=== PATIENT | male | born 1980 | race Caucasian/White ===

== ENCOUNTER 2016-05-11 17:09 | Emergency (ER) | payer MEDICARE ==
--- NOTE | 2016-05-11 17:40 | ER Document Report ---
ED General - General Mode of Arrival: Ambulatory Information source: Patient, Law Enforcement TRAVEL OUTSIDE OF THE [place] IN LAST 30 DAYS: No - HPI Onset: This morning Quality of pain: No pain Severity: None Associated symptoms: None Exacerbated by: Denies Relieved by: Denies Similar symptoms previously: Yes - Recently seen / treated by doctor: No <MAYKEL HERNANDEZ - Last Filed: 05/11/16 19:22> <JAMI HERNANDEZ - Last Filed: 05/12/16 00:42> <DON MOCK - Last Filed: 05/12/16 16:36> - General Chief Complaint: Psych Problem Stated Complaint: PSYCH LEE ANN Notes: Patient presents to the emergency department on IVC orders for concerns of being dangerous to himself and others. The report notes that he is talking himself making hand gestures to his mother. Also reports he's made several threats to harm himself and others. Concerned that he is not taking his schizophrenic medications. Patient is extremely hard to understand he is mumbling under his breath. Patient is calm at this time. (MAYKEL HERNANDEZ) - Related Data Allergies/Adverse Reactions: quetiapine fumarate [From Seroquel] Allergy (Verified 09/07/15 16:48) ziprasidone HCl [From Geodon] Allergy (Verified 09/07/15 16:48) ziprasidone mesylate [From Geodon] Allergy (Verified 09/07/15 16:48) Past Medical History - General Information source: Patient - Social History Smoking Status: Unknown if Ever Smoked Cigarette use (# per day): No Chew tobacco use (# tins/day): Yes Frequency of alcohol use: None Drug Abuse: None Lives with: Other - pt denies living with anyone, [facility] patient [facility] a resident of the [facility]. Family History: Reviewed & Not Pertinent - Past Medical History Cardiac Medical History: Denies: Hx Heart Attack, Hx Hypertension Pulmonary Medical History: Denies: Hx Asthma Neurological Medical History: Denies: Hx Cerebrovascular Accident, Hx Seizures GI Medical History: Denies: Hx Hepatitis, Hx Hiatal Hernia, Hx Ulcer Psychiatric Medical History: Reports: Hx Bipolar Disorder, Hx Schizophrenia Infectious Medical History: Denies: Hx Hepatitis Past Surgical History: Denies: Hx Open Heart Surgery, Hx Pacemaker <MAYKEL HERNANDEZ - Last Filed: 05/11/16 19:22> Review of Systems <MAYKEL HERNANDEZ - Last Filed: 05/11/16 19:22> <JAMI HERNANDEZ - Last Filed: 05/12/16 00:42> <DON MOCK - Last Filed: 05/12/16 16:36> - Review of Systems Notes: Review HPI for review of systems., All other systems negative (MAYKEL HERNANDEZ) Physical Exam <MAYKEL HERNANDEZ - Last Filed: 05/11/16 19:22> <JAMI HERNANDEZ - Last Filed: 05/12/16 00:42> <DON MOCK - Last Filed: 05/12/16 16:36> - Vital signs Vitals: Temp Pulse Resp BP Pulse Ox 98.4 F 75 20 128/76 H 100 05/11/16 17:17 05/11/16 17:17 05/11/16 17:17 05/11/16 17:17 05/11/16 17:17 (MAYKEL HERNANDEZ) (JAMI HERNANDEZ) (DON MOCK) - Notes Notes: PHYSICAL EXAMINATION: GENERAL: Well-appearing and in no acute distress calm HEAD: Atraumatic, normocephalic. EYES: Pupils equal round extraocular movements intact, sclera anicteric, conjunctiva are normal. ENT: nares patent, . Moist mucous membranes. NECK: Normal range of motion, supple without lymphadenopathy LUNGS: CTAB and equal. No wheezes rales or rhonchi. HEART: Regular rate and rhythm without murmurs ABDOMEN: Soft, no tenderness. No guarding, no rebound EXTREMITIES: Normal range of motion, no pitting edema. No cyanosis. NEUROLOGICAL: Cranial nerves grossly intact. PSYCH: Normal mood, normal affect. SKIN: Warm, Dry, normal turgor, no rashes or lesions noted (MAYKEL HERNANDEZ) Course - Laboratory Result Diagrams: 05/11/16 17:35 05/11/16 17:35 <MAYKEL HERNANDEZ - Last Filed: 05/11/16 19:22> - Laboratory Result Diagrams: 05/11/16 17:35 05/11/16 17:35 <JAMI HERNANDEZ - Last Filed: 05/12/16 00:42> - Laboratory Result Diagrams: 05/11/16 17:35 05/11/16 17:35 <DON MOCK - Last Filed: 05/12/16 16:36> - Re-evaluation Re-evalutation: 05/11/16 17:39 Fredy from mental health is aware patient. She has reviewed his chart. She attempted to contact the person on the IVC orders for further information. Unable to contact them. She will further evaluate him in the morning. 05/11/16 19:22 Pt resting quietly, calm, report given to Jami HUA (MAYKEL HERNANDEZ) 05/12/16 00:40 Patient sleeping peacefully on evaluation. (JAMI HERNANDEZ) - Vital Signs Vital signs: Temp Pulse Resp BP Pulse Ox 98.4 F 68 18 138/70 H 99 05/11/16 17:17 05/12/16 07:27 05/12/16 07:27 05/12/16 07:27 05/12/16 07:27 (MAYKEL HERNANDEZ) (JAMI HERNANDEZ) (DON MOCK) - Laboratory Laboratory results interpreted by me: 05/11/16 05/11/16 05/11/16 17:35 17:35 18:00 Hgb 12.2 L MCH 26.2 L RDW 14.2 H Carbon Dioxide 31 H Urine Ketones 25 H Urine Blood SMALL H Salicylates < 1.0 L Acetaminophen < 10 L (JAMI HERNANDEZ) (DON MOCK) Discharge <MAYKEL HERNANDEZ - Last Filed: 05/11/16 19:22> <JAMI HERNANDEZ - Last Filed: 05/12/16 00:42> <DON MOCK - Last Filed: 05/12/16 16:36> - Discharge Clinical Impression: Noncompliance with medication regimen Schizophrenia Qualifiers: Schizophrenia type: unspecified Qualified Code(s): F20.9 - Schizophrenia, unspecified Condition: Stable Disposition: HOME, SELF-CARE Additional Instructions: You were given a long acting form of Haldol today which should last about 4 weeks. You may return to the care home where he lives today. Follow-up with your psychiatric mental health providers in the next 2 weeks. RETURN TO THE EMERGENCY ROOM IF ANY NEW OR WORSENING SYMPTOMS. Scribe Attestation: 05/12/16 16:35 (DON MOCK)
[2016-05-11] MEDS ORDERED: HALOPERIDOL LACTATE INJ 5 MG/1 ML VIAL IM PRN (17:56)
[2016-05-11 18:00] LABS: ABSOLUTE BASOPHILS # (AUTO) 0.1 10^3/uL (0.0-0.2); ABSOLUTE EOSINOPHILS # (AUTO) 0.1 10^3/uL (0.0-0.6); ABSOLUTE LYMPHOCYTES (AUTO) 1.8 10^3/uL (0.5-4.7); ABSOLUTE MONOCYTES (AUTO) 0.8 10^3/uL (0.1-1.4); ABSOLUTE NEUT (AUTO) 3.7 10^3/uL (1.7-8.2); BASOPHILS % (AUTO) 0.8 % (0-2); EOSINOPHILS % (AUTO) 1.9 % (0-6); HEMATOCRIT 37.9 % (37.9-51.0); HEMOGLOBIN 12.2 g/dL (13.5-17.0); HGB HCT DIFFERENCE -1.3; LYMPHOCYTES % (AUTO) 27.3 % (13-45); MEAN CORPUSCULAR HEMOGLOBIN 26.2 pg (27.0-33.4); MEAN CORPUSCULAR HGB CONC 32.3 g/dL (32.0-36.0); MEAN CORPUSCULAR VOLUME 81 fl (80-97); RED BLOOD COUNT 4.68 10^6/uL (4.35-5.55); RED CELL DISTRIBUTION WIDTH 14.2 % (11.5-14.0); WHITE BLOOD COUNT 6.5 10^3/uL (4.0-10.5)
[2016-05-11 18:12] LABS: ALANINE AMINOTRANSFERASE 36 U/L (21-72); ALBUMIN 3.9 g/dL (3.5-5.0); ALCOHOL < 10 mg/dL (NONE DETECTED); ALKALINE PHOSPHATASE 51 U/L (38-126); ANION GAP 8 (5-19); ASPARTATE AMINO TRANSFERASE 25 U/L (17-59); BILIRUBIN,TOTAL 0.5 mg/dL (0.2-1.3); BLOOD UREA NITROGEN 9 mg/dL (7-20); CALCIUM 9.5 mg/dL (8.4-10.2); CARBON DIOXIDE 31 mmol/L (22-30); CHLORIDE 104 mmol/L (98-107); CREATININE RESULT 0.97 mg/dL (0.52-1.25); GLUCOSE 102 mg/dL (75-110); POTASSIUM 3.6 mmol/L (3.6-5.0); SODIUM 143.2 mmol/L (137-145); TOTAL PROTEIN 6.6 g/dL (6.3-8.2)
[2016-05-11 18:43] LABS: URINE BARBITURATES SCREEN NEGATIVE; URINE METHADONE SCREEN NEGATIVE; URINE OPIATES LOW NEGATIVE; URINE PHENCYCLIDINE SCREEN NEGATIVE
[2016-05-11 18:58] LABS: APPEARANCE,URINE CLEAR; BILIRUBIN,URINE NEGATIVE (NEGATIVE); GLUCOSE, URINE NEGATIVE (NEGATIVE); KETONES,URINE 25 mg/dL (NEGATIVE); URINE SPECIFIC GRAVITY 1.009
[2016-05-11 18:59] LABS: LEUKOCYTE ESTERASE,URINE NEGATIVE (NEGATIVE); NITRITE,URINE NEGATIVE (NEGATIVE); PROTEIN,URINE NEGATIVE (NEGATIVE); UROBILINOGEN,URINE NEGATIVE mg/dL (<2.0)
--- NOTE | 2016-05-11 21:45 | EKG REPORT ---
SEVERITY:- OTHERWISE NORMAL ECG - SINUS RHYTHM BORDERLINE RIGHT AXIS DEVIATION : Confirmed by: Alona Mendes 11-May-2016 21:43:52
[2016-05-11] MEDS: BENZTROPINE MESYLATE 1 MG TABLET PO SCH (23:05)
--- NOTE | 2016-05-12 10:24 | ER Document Report ---
Doctor's Note Notes: 05/12/16 10:24 Patient is sitting up on the bed, he is talking to himself and is eating. At this time is waiting for psychiatric evaluation to determine if they will proceed with the involuntary commitment.
[2016-05-12] MEDS ORDERED: HALOPERIDOL DECANOATE INJ 100 MG/1 ML VIAL IM PRN (15:50)
[2016-05-12] MEDS ORDERED: HALOPERIDOL DECANOATE INJ 100 MG/1 ML VIAL IM ONE (18:00)
[2016-05-12] MEDS: BENZTROPINE MESYLATE 1 MG TABLET PO SCH (20:57)
[2016-05-12 23:03] VITALS: BP 125/81
--- NOTE | 2016-05-14 13:58 | PSYCHOLOGICAL NOTE ---
Psych Note - Psych Note Psych Note: Patient presents to the emergency department on IVC orders for concerns of being dangerous to himself and others. The report notes that he is talking himself making hand gestures to his mother. Also reports he's made several threats to harm himself and others. Concerned that he is not taking his schizophrenic medications. Patient states that sometimes he takes his medication. He continued disclosed that he didn't doesn't think that they were good so he really stopped because of the pains in his legs and head. Patient continued to disclose that he does not understand why his fci sent him to [facility]. When asked patient states he does not have thoughts of hurting himself or others. Patient admits that he does talk under his breath however denies wanting to cause harm. He continued disclosed that he does not understand why would be bad that he talks under his breath because everyone has that right. When patient is asked if he hears or sees things other people do not he disclosed that he does sometimes. He continued disclosed that the voices are sometimes bad however it does not bother him. Patient is alert and orientated to person place and time. Patient's mood is euthymic with congruent affect. Patient is demonstrating behavior indicating rate responding to internal stimuli such as looking around the room, mumbling and talking when no one is there; no delusions are noted. Thought process is linear when discussing things with clinician. Conversational speech was slow and mumbled. Eye contact was fair. Intellectual abilities appear to be low average range. Attention and concentration are fair. Insight judgment and impulse control are fair. Clinician spoke with patient's fci Kennedi, she states she does not know why the patient was sent to [facility]. She continued disclosed she had no observations of any issues however she was not present yesterday when he was sent. She continued disclosed that the patient does not take his medication. Schizophrenia per history provided by patient Impression\\plan: Patient is recommended to rescind IVC is psychiatrically cleared for discharge. Patient does not meet criteria for IVC per [place] GS 120 2C. senior living is complaining patient is not taking his medication and muttering under his breath. Patient denies suicidal and homicidal ideation. Patient is demonstrating that he is responding to internal stimuli; however, the patient is able to identify the voices as not real. Patient has been appropriate with hospital staff. Patient is able to demonstrate cognitive functioning by carrying on linear conversation with clinician in identifying his "right" to talk under his breath. Patient is psychiatrically cleared for discharge. Dr. Moore was consulted on the care and management of this patient ; attending physician is in agreement with recommendations and disposition.
== END 2016-05-12 21:50 ==
LOC: ER 17:09
DX: F20.9 Schizophrenia, unspecified (principal); Z91.14 Patient's other noncompliance with medication regimen
CPT/HCPCS: 93005; 99285; 96372; 36415; 80307 ×4; 85025; 80053; 81001; 93010; A9270 ×2; J1631